=== PATIENT | female | born 1970 | race Caucasian/White ===

== ENCOUNTER → 2019-06-10 | Outpatient (CLI) | payer OTHER | LOC: ULTRA 12:03 | DX: N88.8 Other specified noninflammatory disorders of cervix uteri (principal) ==

== ENCOUNTER 2020-06-23 16:51 | Observation (INO) | payer OTHER ==
[~2020-06-23] VITALS: Ht 162.6 cm; Wt 86.2 kg
[~2020-06-23 16:51] MED LIST: CLEOCIN HCL300 MG PO
[2020-06-23 17:09] VITALS: BP 102/70
[2020-06-23 17:24] LABS: URINE BILIRUBIN NEGATIVE (Negative); URINE BLOOD TRACE (Negative); URINE CLARITY SL CLOUDY; URINE COLOR YELLOW; URINE GLUCOSE-RANDOM* 3+ (Negative); URINE KETONES NEGATIVE (Negative); URINE LEUKOCYTES-REFLEX NEGATIVE (Negative); URINE NITRITE-REFLEX NEGATIVE (Negative); URINE PROTEIN (DIPSTICK) NEGATIVE (Negative); URINE SPECIFIC GRAVITY <= 1.005 (1.005-1.035); URINE UROBILINOGEN 0.2 E.U./dl (0.2-1.0)
[2020-06-23 17:30] LABS: BE(vivo) 3.6 mmol/L (-2 to +3); HCO3 28.7 mmol/L (22.0-26.0); PCO2 VENOUS 44.5 mmHg (41.0-51.0); PO2 VENOUS 42.1 mmHg (35.0-45.0)
[2020-06-23 17:31] LABS: HEMATOCRIT 45.5 % (37.0-47.0); HEMOGLOBIN 15.8 gm/dL (12.0-15.0); MCH 30.8 pg (26.0-34.0); MCHC 34.7 g/dL (28.0-37.0); MCV 88.8 fL (80.0-100.0); PLATELET COUNT 331 thou/uL (150-400); RBC 5.13 mil/uL (4.20-5.00); RDW 12.8 % (10.5-14.5)
[2020-06-23 17:42] LABS: CALCIUM 9.5 mg/dL (8.5-10.1); CREATININE 1.6 mg/dL (0.6-1.0); POTASSIUM 3.1 mmol/L (3.5-5.1)
[2020-06-23 17:45] LABS: ALBUMIN 3.8 g/dL (3.4-5.0); TOTAL BILIRUBIN 0.4 mg/dL (0.2-1.0); TOTAL PROTEIN 8.4 g/dL (6.4-8.2)
[2020-06-23] MEDS ORDERED: TRIAMTERENE/HCT1 CA1 PO (18:09)
[2020-06-23] MEDS ORDERED: ALPRAZOLAM ER0.5 MG PO (18:10)
[2020-06-23] MEDS ORDERED: NORCO 10-325 T1 EACH PO (18:11)
[2020-06-23 18:46] LABS: ABSOLUTE NEUTROPHILS 6.3 thou/uL (1.4-8.2); PLATELET ESTIMATE NORMAL
[2020-06-23 18:50] LABS: MAGNESIUM 2.2 mg/dL (1.8-2.4); PHOSPHORUS 4.5 mg/dL (2.5-4.9)
[2020-06-23 20:21] VITALS: BP 122/76
--- NOTE | 2020-06-23 20:36 | NUR ---
ATTEMPTED TO CALL REPORT, NURSE IS UNAVAILABLE AND WILL CALL BACK
[2020-06-23 20:51] LABS: ALBUMIN 3.2 g/dL (3.4-5.0); CALCIUM 8.6 mg/dL (8.5-10.1); CREATININE 1.2 mg/dL (0.6-1.0); PHOSPHORUS 3.8 mg/dL (2.5-4.9)
[2020-06-23 20:56] LABS: POTASSIUM 2.9 mmol/L (3.5-5.1)
[2020-06-24 00:26] LABS: POTASSIUM 3.4 mmol/L (3.5-5.1)
[2020-06-24 01:49] VITALS: BP 98/63
--- NOTE | 2020-06-24 03:31 | NUR ---
PATIENT AOX4 MAKES NEEDS KNOWN. PATIENT AMITTED FOR HYPERGLYCEMIA AND HYPOKALEMIA. PATIENT IS A STAND BY ASSIST. PATIENT NEEDS MINIMUM ASSISTANCE WITH ADL, BED MOBILITY, TOILETING AND TRANSFER. PATIENT ENCOURAGED FLUIDS. PATIENT IN BED ASLEEP AT THIS TIME BREATHING REGULAR AND UNLABOURED.
[2020-06-24 05:32] LABS: ABSOLUTE NEUTROPHILS 4.4 thou/uL (1.4-8.2); BASOPHILS 0.7 % (0.0-2.0); EOSINOPHILS 1.3 % (0.0-3.0); HEMATOCRIT 38.9 % (37.0-47.0); LYMPHOCYTES 42.8 % (24.0-44.0); MCH 30.8 pg (26.0-34.0); MCHC 34.6 g/dL (28.0-37.0); MCV 89.1 fL (80.0-100.0); MONOCYTES 5.9 % (1.0-8.0); POLYS 49.3 % (36.0-66.0); RBC 4.36 mil/uL (4.20-5.00); RDW 13.1 % (10.5-14.5); WBC 8.9 thou/uL (4.0-11.0)
[2020-06-24 05:38] LABS: HEMOGLOBIN 13.4 gm/dL (12.0-15.0); PLATELET COUNT 232 thou/uL (150-400)
[2020-06-24 05:49] LABS: ALBUMIN 2.6 g/dL (3.4-5.0); CALCIUM 8.3 mg/dL (8.5-10.1); CREATININE 0.9 mg/dL (0.6-1.0); MAGNESIUM 1.8 mg/dL (1.8-2.4); PHOSPHORUS 2.3 mg/dL (2.5-4.9); TOTAL BILIRUBIN 0.4 mg/dL (0.2-1.0); TOTAL PROTEIN 6.1 g/dL (6.4-8.2)
[2020-06-24 05:55] LABS: POTASSIUM 2.8 mmol/L (3.5-5.1)
[2020-06-24 07:08] LABS: ESTIMATED AVERAGE GLUCOSE > 398 mg/dL (()); GLYCOHEMOGLOBIN (HGB A1C) > 15.5 % (4.8-5.6)
[2020-06-24 07:21] VITALS: BP 103/59
--- NOTE | 2020-06-24 13:44 | NUR ---
met with patient who resides in home with family, spouse, college age son and 12 year old dtr. 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 She arrived at Dr Cherry office with BS of 875. She cannot believe she was driving but she reports she felt normal. She will likely dc later today. She has health insurance. PCP Dr Lopez. Aniticipate no dc needs
[2020-06-24] MEDS ORDERED: METFORMIN HCL500 M3 PO (15:34)
[2020-06-24 15:51] VITALS: BP 103/59
--- NOTE | 2020-06-24 16:11 | NUR ---
PT CARE ASSUMED APPROX 0700. ASSESSMENTS CHARTED. VSS. UP WITH STEADY GAIT. DISCHARGING AT THIS TIME. PT AGREEABLE TO DISCHARGE. DIABETES EDUCATION DONE BY PHYSICIAN AND ALL DISCHARGE EDUCATION REINFORCED BY THIS NURSE. PT DENIES QUESTIONS OR CONCERNS REGARDING POST HOSPITAL CARES. ALL BELONGINGS IN PT POSSESSION. IV OUT, TELE OFF. PT ESCORTED OF UNIT AT THIS TIME.
== END 2020-06-24 16:26 | disposition home or self-care (01) ==
LOC: ER 16:51 → 4W 19:06 → EROBS 19:06 → 4W 06-24 01:15
PROVIDERS: Physician Assistant; ADMIT Family Medicine; ATTEND Family Medicine
DX: E11.65 Type 2 diabetes mellitus with hyperglycemia (principal); E86.9 Volume depletion, unspecified; R79.89 Other specified abnormal findings of blood chemistry; E87.6 Hypokalemia; Z79.84 Long term (current) use of oral hypoglycemic drugs; Z79.899 Other long term (current) drug therapy

== ENCOUNTER 2021-02-09 23:35 | Observation (INO) | payer OTHER ==
[~2021-02-09] VITALS: Ht 162.6 cm; Wt 99.3 kg
--- NOTE | ~2021-02-09 | HC ---
[facility] [place] [address] CONSULTATION Name: NOA OWEN Room #: 200-I [facility] M..#: [id number] Admission: 02/10/21 Attend Phys: Oren Cherry MD, FAA Discharge: 02/10/21 Date of : 74 Report #: [id number] THIS REPORT FOR: cc: Oren Cherry MD [facility] Oren Cherry MD [facility] Wiliam Finley MD [facility] ~ DATE OF SERVICE: 02/10/2021 REASON FOR CONSULTATION: Palpitations. HISTORY OF PRESENT ILLNESS: The patient is a 50-year-old with diabetes and treated hypothyroidism. She presented with palpitations. I have been kindly asked to see her in this regard. Her history, comes from interview with the patient as well as review provided outpatient records, which are summarized in the note. She received the COVID vaccine last weekend. She has had some general malaise and fatigue with low-grade fevers. Yesterday, she had a sense of that her heart was racing very fast. This was associated with shortness of breath and lightheadedness. The heart rate would at times revert to normal, although consistently came back to a very rapid rate with those associated symptoms. She presented to the Emergency Department where her EKG demonstrated an SVT at 178 beats per minute. She was treated with adenosine 6 mg with conversion of SVT to sinus rhythm. She denies a prior cardiac history. She is a heavy caffeine user. No history of near syncope or syncope. ALLERGIES: No known drug allergies. MEDICATIONS: Include Maxzide 1 a day, levothyroxine 25 mcg daily, glyburide 5 mg twice daily, amitriptyline 50 mg at night, levothyroxine 25 mcg daily, Actos 15 mg daily. PAST MEDICAL HISTORY: Medical records have been reviewed and include a history of gestational diabetes, two prior pregnancies associated with placenta previa requiring C-sections, dyslipidemia, hypertension, diabetes, recent diagnosis. SOCIAL HISTORY: She is , works as an insurance advisor, smokes 5 cigarettes a day. FAMILY HISTORY: Notable for both parents with diabetes. Both parents with coronary artery disease with stenting. REVIEW OF SYSTEMS: All systems negative except as that noted above. PHYSICAL EXAMINATION: GENERAL: Reveals a pleasant woman in no distress. VITAL SIGNS: Blood pressure is 100/62, heart rate of 100 and regular. She is [facility] [address] [place] [address] CONSULTATION Name: NOA OWEN Room #: 200-I [facility]#: [id number] Admission: 02/10/21 Attend Phys: Oren Cherry MD, FAAF Discharge: 02/10/21 Date of : 74 Report #: [id number] afebrile. HEENT: There are neither xanthelasma, subcutaneous xanthomata, oral mucosal or digital cyanosis or kyphoscoliosis present. CHEST: Clear to auscultation and percussion. CARDIAC: Regular rate and rhythm with normal S1 and S2. ABDOMEN: Soft and nontender. EXTREMITIES: Without cyanosis, clubbing or edema. Radial pulses are 2+. NEUROLOGIC: She is alert with a nonfocal exam. LABORATORY DATA: CT of the chest demonstrates no evidence for pulmonary embolism. 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 Followup EKG, sinus rhythm with poor R-wave progression. Sodium 132, potassium 4.1, creatinine 1.2, magnesium 1.7. Troponin 0, proBNP of 83. White count 14.4, hemoglobin 15, hematocrit 43, platelet count 381. Chest x-ray is normal. IMPRESSION: 1. Paroxysmal supraventricular tachycardia. 2. Hypertension. 3. Diabetes. 4. Tobacco dependency. RECOMMENDATIONS: 1. Avoidance of caffeine and gzng-fkn-npsvygb stimulants. The patient's diet is very high in caffeine intake. 2. Consider low dose Cardizem 180 mg daily, prescription given. For recurrent symptoms despite modification and moderation of her caffeine intake, I would consider an ablation. 3. Echocardiogram with Doppler to exclude structural heart disease. 4. We will follow up on an outpatient basis. These issues were discussed with the patient in detail. Thank you for asking me to participate in her care. By: 0723 0740 Wiliam Finley MD, [facility] /nt
[~2021-02-09 23:35] MED LIST changes: +ALPRAZOLAM ER0.5 MG PO; +METFORMIN HCL500 M3 PO; +NORCO 10-325 T1 EACH PO; +TRIAMTERENE/HCT1 CA1 PO
[2021-02-10 00:24] VITALS: BP 124/107
--- NOTE | 2021-02-10 00:28 | NUR ---
PT BROUGHT BACK TO RM 4 HR 196-198. PT WITH ANXIETY, DIZZINESS, WEAKNESS, DIAPHORESIS AND NAUSEA. PT PLACED IN BED AND EKG OBTAINED. ATTEMPTED TO ASSIST PT WITH VAGAL MANUVER, UNSUCCESSFUL. IV PLACED VIA US. 0015 6MG ADENOSINE GIVEN IVP, WITH 20ML NS IVP IMMEDIATELY AFTER. PT HR CONVERTED TO SR 118. PT STATING THAT SHE FEELS BETTER LESS ANXIOUS. PT SAT UPRIGHT FOR XRAY AND BECAME DIZZY. PT A&OX4 PETERS, HR 118 AND BP 137/66.
[2021-02-10 00:41] LABS: ABSOLUTE NEUTROPHILS 8.3 thou/uL (1.4-8.2); BASOPHILS 1.2 % (0.0-2.0); HEMATOCRIT 43.5 % (37.0-47.0); HEMOGLOBIN 15.2 gm/dL (12.0-15.0); MCHC 34.9 g/dL (28.0-37.0); MCV 91.8 fL (80.0-100.0); MONOCYTES 6.2 % (1.0-8.0); PLATELET COUNT 381 thou/uL (150-400); POLYS 57.6 % (36.0-66.0); RBC 4.74 mil/uL (4.20-5.00); RDW 13.9 % (10.5-14.5); WBC 14.4 thou/uL (4.0-11.0)
[2021-02-10 00:46] LABS: ANION GAP 10 mmol/L (7-16); BUN 11 mg/dL (7-18); CALCIUM 9.2 mg/dL (8.5-10.1); CHLORIDE 97 mmol/L (98-107); CO2 25 mmol/L (21-32); CREATININE 1.2 mg/dL (0.6-1.0); GLUCOSE 198 mg/dL (74-106); POTASSIUM 4.1 mmol/L (3.5-5.1); SODIUM 132 mmol/L (136-145)
[2021-02-10 00:56] LABS: ALBUMIN 3.6 g/dL (3.4-5.0); MAGNESIUM 1.7 mg/dL (1.8-2.4); SGOT 40 U/L (15-37); SGPT 46 U/L (30-65); TOTAL BILIRUBIN 0.5 mg/dL (0.2-1.0); TOTAL PROTEIN 8.4 g/dL (6.4-8.2); TROPONIN-I <0.06 ng/mL (<0.06)
[2021-02-10] MEDS ORDERED: SYNTHROID25 MC1 PO (01:22)
[2021-02-10] MEDS ORDERED: GLYBURIDE 5 MG T5 M1 PO (01:23)
[2021-02-10] MEDS ORDERED: MELOXICAM15 MG PO (01:23)
[2021-02-10 02:39] VITALS: BP 124/107
[2021-02-10 03:09] VITALS: BP 126/68; BP 99/62
[2021-02-10] MEDS ORDERED: PIOGLITAZONE15 MG PO (03:23)
[2021-02-10] MEDS ORDERED: PHENTERMINE H37.5 MG PO (03:24)
[2021-02-10] MEDS ORDERED: AMITRIPTYLINE H50 M2 PO (03:26)
[2021-02-10] MEDS ORDERED: PROAIR HFA8.5 GM INH (03:28)
[2021-02-10] MEDS ORDERED: AMOXICILLIN 50500 MG PO (03:30)
[2021-02-10] MEDS ORDERED: TEMAZEPAM30 MG PO (03:31)
[2021-02-10] MEDS ORDERED: BENZONATATE200 MG PO (03:32)
[2021-02-10] MEDS ORDERED: SUMATRIPTAN SU100 MG PO (03:33)
--- NOTE | 2021-02-10 04:34 | NUR ---
ADMITTED TO FLOOR AT 0300 PER CART TO ROOM 200. WALKED INTO ROOM SLIGHTLY UNSTEADY AND STATES DOES HAVE SOME DIZZINESS. FALL PRECAUTIONS PUT INTO PLACE. INSTRUCTED PATIENT TO CALL WHEN WANTING UP. ADMISSION PROCESS INITIATED AND COMPLETED. REVIEWED PLAN OF CARE FOR NOC. MONITOR HEART RYTHM AND RATE. DENIES COMPLAINTS OF PAIN OR SHORTNESS OF AIR AT THIS TIME. STATES ER GAVE ANXIETY MEDS AND SHE FEELS BETTER. [address] WEST FOR ADMISSION ORDERS. CONTINUE TO ASSES CLOSELY.
--- NOTE | 2021-02-10 07:03 | EKG ---
[address] [place] [address] ELECTROCARDIOGRAM REPORT Name: NOA OWEN Room #: 200-I ADM IN .R.#: [id number] Admission: 02/10/21 Attend Phys: Oren Cherry MD, FAAF Discharge: Date of : 74 Report #: [id number] [facility] ED Test Date: 2021-02-09 Test Time: 23:49:00 Pat Name: NOA OWEN Department: Room: 200 Gender: F Biological Lab Technician: ren : 1970 Requested By: Kennedy Osorio Order Number: [id number] MD: Bull Andrea Measurements Intervals [place] Rate: 178 P: 62 IN: 220 QRS: -89 QRSD: 78 T: 63 QT: 265 QTc: 456 Interpretive Statements Supraventricular tachycardia Left anterior fascicular block No previous ECG available for comparison Electronically Signed On 02-10-2021 7:02:52 CDT by Bull Andrea [email or web address] <ELECTRONICALLY SIGNED> By: Bull Andrea MD, [facility] 02/10/21 07 2349 2349 Bull Andrea MD, FACC /EPI
[2021-02-10 07:15] VITALS: BP 131/79
[2021-02-10] MEDS ORDERED: CARDIZEM CD 18180 M3 PO (09:29)
--- NOTE | 2021-02-10 10:37 | 2DMMODE ---
[facility] [place] [address] 2 D/M-MODE ECHOCARDIOGRAM Name: NOA OWEN Room #: 200-I ADM IN .R.#: [id number] Admission: 02/10/21 Attend Phys: Oren Cherry MD, FAAF Discharge: Date of : 74 Report #: [id number] THIS REPORT FOR: cc: Oren Cherry MD, FAAFP FACE Oren Cherry MD FAAPANKAJ FACEWiliam Soliz MD [facility] ~ APPROVED REPORT Study performed: 02/10/2021 09:24:57 EXAM: Comprehensive 2D, Doppler, and color-flow Echocardiogram Patient Location: Echo lab Room #: 200 Status: routine BSA: 2.03 HR: 99 bpm BP: 131/79 mmHg Rhythm: Tachycardia Other Information Study Quality: Fair Indications Indication: SVT. Hx: HTN, DM, Tobacco. 2D Dimensions RVDd: 32.65 mm IVSd: 9.77 (7-11mm) LVOT Diam: 20.34 (18-24mm) LVDd: 48.01 mm PWd: 10.59 (7-11mm) Ascending Ao: 31.99 (22-36mm) LVDs: 26.11 (25-40mm) Aortic Root: 29.85 mm Volumes Left Atrial Volume (Systole) Single Plane 4CH: 30.02 mL Single Plane 2CH: 33.63 mL LA ESV Index: 17.00 mL/m2 Aortic Valve AoV Peak Alfie.: 1.22 m/s AO Peak Gr.: 5.99 mmHg LVOT Max P.51 mmHg LVOT Max V: 1.06 m/s KRISTY Vmax: 2.82 cm2 [facility] [address] [place] [address] 2 D/M-MODE ECHOCARDIOGRAM Name: NOA OWEN Room #: 200-I [facility]#: [id number] Admission: 02/10/21 Attend Phys: Oren Cherry MD, Discharge: Date of : 74 Report #: [id number] Mitral Valve E/A Ratio: 0.8 MV Decel. Time: 240.94 ms MV E Max Alfie.: 0.68 m/s MV A Alfie.: 0.81 m/s MV PHT: 69.87 ms IVRT: 83.04 ms Pulmonary Valve PV Peak Alfie.: 0.97 m/s PV Peak Gr.: 3.79 mmHg Pulmonary Vein P Vein S: 0.53 m/s P Vein A: 0.29 m/s P Vein D: 0.35 m/s P Vein A Dur.: 92.3 msec P Vein S/D Ratio: 1.51 Left Ventricle The left ventricle is normal size. There is normal LV segmental wall motion. There is normal left ventricular wall thickness. The left ventricular systolic function is normal. LVEF is 60-65%. Mild diastolic dysfunction Right Ventricle The right ventricle is normal size. The right ventricular systolic function is normal. Atria The left atrium size is normal. The right atrium size is normal. Aortic Valve The aortic valve is normal in structure. No aortic regurgitation is present. There is no aortic valvular stenosis. Mitral Valve The mitral valve is normal in structure. There is no mitral valve regurgitation noted. No evidence of mitral valve stenosis. Tricuspid Valve The tricuspid valve is normal in structure. There is no tricuspid valve regurgitation noted. Unable to assess PA pressure. Pulmonic Valve The pulmonary valve is normal in structure. There is no pulmonic valvular regurgitation. [facility] [address] [place] [address] 2 D/M-MODE ECHOCARDIOGRAM Name: NOA OWEN Room #: 200-I ADM IN .R.#: [id number] Admission: 02/10/21 Attend Phys: Oren Cherry MD, Discharge: Date of : 74 Report #: [id number] Great Vessels The aortic root is normal in size. The ascending aorta is normal in size. IVC is not well visualized. Pericardium There is no pericardial effusion. <Conclusion> The left ventricular systolic function is normal. There is normal LV segmental wall motion. LVEF is 60-65%. Mild diastolic dysfunction The aortic valve is normal in structure. No aortic regurgitation or stenosis. The mitral valve is normal in structure. No mitral valve regurgitation. Unable to assess pulmonary artery pressure. There is no pericardial effusion. <ELECTRONICALLY SIGNED> By: Wiliam Finley MD, FACC 02/10/21 1036 1036 1036 Wiliam Finley MD, FACC /INF
[2021-02-10 11:30] VITALS: BP 115/68
[2021-02-10 13:32] VITALS: BP 131/79
--- NOTE | 2021-02-10 13:50 | NUR ---
ASSUMED CARE SHIFT CHANGE. ASSESSMENTS CHARTED.MEDS GIVEN. VSS DENIES PAIN. PT C/O ANXIETY MEDS GIVEN PER MAR. NO CARDIAC EVENTS ON MONITOR. ECHO THIS SHIFT SEE RESULTS. DC ORDERS ACKNOWLEDGED AND IMPLEMENTED. PAPERWORK DISCUSSED WITH PT. COMMUNICATES UNDERSTANDING. IV REMOVED. TELE REMOVED. PT LEFT UNIT WITH ALL BELONGINGS.
--- NOTE | 2021-02-10 15:25 | EKG ---
[address] [place] [address] ELECTROCARDIOGRAM REPORT Name: NOA OWEN Room #: 200-I [facility]#: [id number] Admission: 02/10/21 Attend Phys: Oren Cherry MD, FAAF Discharge: 02/10/21 Date of : 74 Report #: [id number] [facility] ED Test Date: 2021-02-10 Test Time: 00:15:31 Pat Name: NOA OWEN Department: Room: [facility] Gender: F Sales Associate: ren : 1970 Requested By: Kennedy Osorio Order Number: [id number] MD: Bull Andrea Measurements Intervals [place] Rate: 127 P: 45 ID: [id number] QRS: 10 QRSD: 78 T: 54 QT: 287 QTc: 418 Interpretive Statements Sinus tachycardia Compared to ECG 02/09/2021 23:49:00 Supraventricular tachycardia no longer present Left anterior fascicular block no longer present Electronically Signed On 02-10-2021 15:25:16 CDT by Bull Andrea [email or web address] <ELECTRONICALLY SIGNED> By: Bull Andrea MD, [facility] 02/10/21 1525 0015 0015 Bull Andrea MD, [facility] /EPI
== END 2021-02-10 13:30 | disposition home or self-care (01) ==
LOC: ER 23:35 → EROBS 02-10 02:19 → 2N 02-10 02:19
PROVIDERS: Emergency Medicine; ADMIT Family Medicine; ATTEND Family Medicine
DX: I47.1 Supraventricular tachycardia (principal); I10 Essential (primary) hypertension; E11.9 Type 2 diabetes mellitus without complications; E78.5 Hyperlipidemia, unspecified; F17.210 Nicotine dependence, cigarettes, uncomplicated; Z79.899 Other long term (current) drug therapy

== ENCOUNTER → 2021-05-26 | Outpatient (CLI) | payer OTHER ==
[~2021-05-26] MED LIST changes: +AMITRIPTYLINE H50 M2 PO; +AMOXICILLIN 50500 MG PO; +BENZONATATE200 MG PO; +CARDIZEM CD 18180 M3 PO; +GLYBURIDE 5 MG T5 M1 PO; +MELOXICAM15 MG PO; +PHENTERMINE H37.5 MG PO; +PIOGLITAZONE15 MG PO; +PROAIR HFA8.5 GM INH; +SUMATRIPTAN SU100 MG PO; +SYNTHROID25 MC1 PO; +TEMAZEPAM30 MG PO
== END ==
LOC: SJCVCIMAG 04-27 08:24
PROVIDERS: ATTEND Internal Medicine
DX: I47.1 Supraventricular tachycardia (principal); I10 Essential (primary) hypertension; E11.9 Type 2 diabetes mellitus without complications; E78.5 Hyperlipidemia, unspecified; G43.909 Migraine, unspecified, not intractable, without status migrainosus; F17.210 Nicotine dependence, cigarettes, uncomplicated; Z90.710 Acquired absence of both cervix and uterus; Z79.899 Other long term (current) drug therapy; Z82.49 Family history of ischemic heart disease and other diseases of the circulatory system

== ENCOUNTER → 2021-06-29 | Outpatient (CLI) | payer OTHER ==
[~2021-06-29] VITALS: Ht 162.6 cm; Wt 99.8 kg
[2021-06-29 07:40] VITALS: BP 108/65
[2021-06-29 07:44] LABS: ABSOLUTE NEUTROPHILS 8.1 thou/uL (1.4-8.2); BASOPHILS 0.3 % (0.0-2.0); EOSINOPHILS 1.8 % (0.0-3.0); HEMATOCRIT 42.5 % (37.0-47.0); HEMOGLOBIN 14.6 gm/dL (12.0-15.0); LYMPHOCYTES 30.5 % (24.0-44.0); MCH 31.3 pg (26.0-34.0); MCHC 34.4 g/dL (28.0-37.0); MONOCYTES 4.3 % (1.0-8.0); PLATELET COUNT 288 thou/uL (150-400); POLYS 63.1 % (36.0-66.0); RBC 4.67 mil/uL (4.20-5.00); RDW 12.7 % (10.5-14.5); WBC 12.8 thou/uL (4.0-11.0)
[2021-06-29 08:02] LABS: APTT 27.4 Seconds (24.5-32.8); CREATININE 1.1 mg/dL (0.6-1.0); INR 0.94; PROTIME 10.3 Seconds (10.5-12.1)
[2021-06-29 08:04] LABS: POTASSIUM 2.6 mmol/L (3.5-5.1)
--- NOTE | 2021-06-29 11:30 | NUR ---
PT REFUSED 2ND BAG OF POTASSIUM AND WANTED TO LEAVE VIRGIL. PT PLEASANT AND COOPERATIVE. RICH HERE TO GIVE PT HER FOLLOW UP AND PROCEDURE DATES.
== END | disposition home or self-care (01) ==
LOC: CATH 06:22
PROVIDERS: ATTEND Internal Medicine Cardiovascular Disease
DX: I47.1 Supraventricular tachycardia (principal); Z53.8 Procedure and treatment not carried out for other reasons; I10 Essential (primary) hypertension; E03.9 Hypothyroidism, unspecified; E11.9 Type 2 diabetes mellitus without complications; F41.9 Anxiety disorder, unspecified; F17.210 Nicotine dependence, cigarettes, uncomplicated; Z98.890 Other specified postprocedural states; Z79.899 Other long term (current) drug therapy; Z90.710 Acquired absence of both cervix and uterus; Z20.822 Contact with and (suspected) exposure to COVID-19

== ENCOUNTER → 2021-07-18 | Outpatient (CLI) | payer OTHER ==
[~2021-07-18] VITALS: Ht 162.6 cm; Wt 104.3 kg
[2021-07-18 10:30] VITALS: BP 125/66
[2021-07-18 10:38] LABS: ABSOLUTE NEUTROPHILS 9.2 thou/uL (1.4-8.2); EOSINOPHILS 2.1 % (0.0-3.0); HEMATOCRIT 46.6 % (37.0-47.0); HEMOGLOBIN 15.5 gm/dL (12.0-15.0); MCH 30.4 pg (26.0-34.0); MCHC 33.2 g/dL (28.0-37.0); MCV 91.6 fL (80.0-100.0); MONOCYTES 4.9 % (1.0-8.0); PLATELET COUNT 285 thou/uL (150-400); RBC 5.08 mil/uL (4.20-5.00); RDW 12.9 % (10.5-14.5); WBC 12.4 thou/uL (4.0-11.0)
[2021-07-18 10:59] LABS: APTT 22.7 Seconds (24.5-32.8); CALCIUM 9.5 mg/dL (8.5-10.1); CREATININE 0.9 mg/dL (0.6-1.0); INR 0.95; POTASSIUM 3.9 mmol/L (3.5-5.1); PROTIME 10.4 Seconds (10.5-12.1)
[2021-07-18 11:06] LABS: ALBUMIN 3.5 g/dL (3.4-5.0); TOTAL BILIRUBIN 0.4 mg/dL (0.2-1.0); TOTAL PROTEIN 8.1 g/dL (6.4-8.2)
--- NOTE | 2021-07-25 11:29 | P ---
[facility] [place] [address] PROCEDURE REPORT Name: NOA OWEN Room #: REG [facility]#: [id number] Admission: 07/18/21 Attend Phys: Rashaun Sanchez MD Discharge: Date of : 74 Report #: [id number] THIS REPORT FOR: cc: [facility] Cherry [facility] Oren Cherry [facility] Rashaun Sanchez MD ~ DATE OF SERVICE: 07/18/2021 PROCEDURE PERFORMED: 1. SVT ablation -- CPT code 92629. 2. EP left atrial pacing and recording, CPT code 00515. 3. Mapping CPT, code 32362. PREOPERATIVE DIAGNOSIS: Supraventricular tachycardia. POSTOPERATIVE DIAGNOSIS: Typical atrioventricular edward reentrant tachycardia. 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 She has had multiple recurrent episodes and is here for ablation. ANESTHESIA: The patient underwent MAC anesthesia with no anesthesia related complications. DESCRIPTION OF PROCEDURE: The patient underwent informed consent. We discussed the details of the procedure including the risks, which include but not limited to bleeding, vascular damage, stroke, AR, cardiac perforation as well as damage to the [place] conduction system requiring permanent pacemaker. She understood these risks and is willing to proceed. The patient was brought to the EP laboratory in a fasting and sedated state, prepped and draped in a standard fashion. Next, I obtained access to the right femoral vein x4 placing an 8-6 and a 7-Guyanese short sheath. Under fluoroscopy, 3 quadripolar catheters were placed at the HRA, His and RV positions and a decapolar catheter was placed into the coronary sinus. Basic EP study was performed. At baseline, the patient was in sinus rhythm, sinus cycle length of 640 milliseconds, WI interval 180 milliseconds, QRS duration 80 milliseconds, QT interval 335 milliseconds with AH interval 95 milliseconds, HV interval of 45 milliseconds. Next, atrial pacing was performed and the patient immediately went into SVT, tachycardia cycle length 360 milliseconds, septal VA time of 35 milliseconds and ventricular entrainment was performed and we had a VAHV response consistent with typical AV edward reentrant tachycardia. Additional pacing was performed and AV block was noted at 300 milliseconds. AV edward ERP was noted at 240 milliseconds at a 400 millisecond [facility] [address] [place] [address] PROCEDURE REPORT Name: MIAH OWENRI Daxa [facility] [id number] Admission: 07/18/21 Attend Phys: Rashaun Sanchez MD Discharge: Date of : 74 Report #: [id number] cycle length. VA block was noted at 310 milliseconds and ventricular ERP was noted at 210 milliseconds at a [address] cycle length. As such a diagnosis of typical AV edward reentrant tachycardia was made. THREE-DIMENSIONAL MAPPING AND ABLATION: Next, I placed a 4 mm [employer] Harris ablation catheter into the right atrium via an SR0 sheath, a 3D geometry of the right atrium was created with specific emphasis of the slow pathway region and His bundle region. Three lesions were performed and on the last two lesions, I had nice slow junctionals lasted for approximately 60 seconds on each burn. There was never any compromise to the AV edward conduction. POST ABLATION TESTING: Post ablation, atrial and ventricular pacing maneuvers were performed. AV block was noted at 290 milliseconds. AV edward ERP was noted at 230 milliseconds at a [address] cycle length. VA block was noted at 310 milliseconds and ventricular ERP was noted at 210 milliseconds at a [address] cycle length as such, the procedure was concluded. The patient remained in sinus rhythm. Catheters and sheaths were pulled. Hemostasis was obtained. The patient awoke neurologically and hemodynamically intact. No complications. No significant bleeding. CONCLUSION: 1. Successful ablation of typical AV edward reentry tachycardia. 2. Normal SA edward function. 3. Normal AV edward function. 4. Normal His-Purkinje function. 5. No other inducible arrhythmias. <ELECTRONICALLY SIGNED> By: Rashaun Sanchez MD 07/25/21 1129 1254 2145 Rashaun Sanchez MD /nt
== END | disposition home or self-care (01) ==
LOC: CATH 08:56
PROVIDERS: ATTEND Internal Medicine Cardiovascular Disease
DX: I47.1 Supraventricular tachycardia (principal); I10 Essential (primary) hypertension; E11.9 Type 2 diabetes mellitus without complications; E78.5 Hyperlipidemia, unspecified; E03.9 Hypothyroidism, unspecified; I48.91 Unspecified atrial fibrillation; F41.9 Anxiety disorder, unspecified; G43.909 Migraine, unspecified, not intractable, without status migrainosus; F17.210 Nicotine dependence, cigarettes, uncomplicated; Z98.890 Other specified postprocedural states; Z79.899 Other long term (current) drug therapy; Z79.01 Long term (current) use of anticoagulants; Z90.710 Acquired absence of both cervix and uterus
CPT/HCPCS: 62110; 62900; 70005